=== PATIENT | male | born 1980 | race Caucasian/White ===

== ENCOUNTER 2019-10-24 00:19 | Emergency (ER) | payer OTHER ==
[2019-10-24 01:03] VITALS: BMI 36.0
--- NOTE | 2019-10-24 01:07 | PDOC ---
Attending Attestation - Resident Resident Name: Alison Dias - ED Attending Attestation I have performed the following: I have examined & evaluated the patient, The case was reviewed & discussed with the resident, I agree w/resident's findings & plan - HPI HPI: 10/24/19 03:53 see resident hpi - Physicial Exam PE: 10/24/19 03:53 see resident exam - Medical Decision Making 10/24/19 03:53 39-year-old male status post fall twisting his left ankle X-rays consistent with distal fibular fracture Due to extensive swelling we will CT scan the lower extremity affected region and hold for duplex in the a.m. Discharge - Discharge Information Problems reviewed: Yes Clinical Impression/Diagnosis: Fibula fracture Condition: Fair - Follow up/Referral - Patient Discharge Instructions - Post Discharge Activity
--- NOTE | 2019-10-24 01:31 | PDOC ---
History of Present Illness - General Chief Complaint: Pain, Acute Stated Complaint: FOOT INJURY Time Seen by Provider: 10/24/19 01:06 - History of Present Illness Initial Comments: HPI Pt is a 39yo Irish speaking M with no significant PMH who presents with left foot pain and swelling. Pt stated that he wanted his [id number] to assist with translation. Pt was lifting doors and walking up stairs on Wednesday pm when he twisted his ankle. Initially denied any pain or swelling and was able to bear weight immediately after accident. On Wednesday morning, notes swelling and pain of left foot, and inability to bear weight. Tried home remedies (potato and salt water) and Tylenol to decrease swelling with no effect. Decided to come in today for worsening pain and swelling, took 2 tabs of Flanax (naproxen). States pain is currently 10/10, sharp,non radiating. PCP: denies - has not seen PCP in many years PMH: denies PSH: appendectomy Meds: denies Allergies: NKDA Review of Systems CONSTITUTIONAL:denies fever, chills, diaphoresis, generalized weakness, malaise, loss of appetite HEENT:denies rhinorrhea, nasal congestion, sore throat CARDIOVASCULAR:denies chest pain, syncope, palpitations, lightheadedness RESPIRATORY:denies cough, shortness of breath, wheezing GASTROINTESTINAL: denies abdominal pain, nausea, vomiting, diarrhea, constipation, melena, hematochezia GENITOURINARY:denies dysuria, frequency, flank pain MUSCULOSKELETAL:denies myalgia, arthralgia HEMATOLOGIC/IMMUNOLOGIC:denies easy bleeding, easy bruising NEUROLOGIC:denies headache, loss of consciousness, dizziness, mental status changes SKIN:denies rash, itching, pallor Physical Exam General: awake, alert, oriented, in no acute distress, well developed, well nourished Head: normocephalic, atraumatic Eyes: PERRL, anicteric sclera, conjunctiva clear ENT: Auricles normal inspection, hearing grossly normal Lung: equal breath sounds b/l, CTA b/l, no crackles, wheezes Heart: RRR, normal S1, S2, no murmurs appreciated Abdomen: soft, non tender, normoactive bowel sounds, no guarding, rebound, masses Extremities: limited ROM with left foot dorsi- and planterflexion, decreased ROM of L knee; normal ROM of RLE, edema of L dorsal foot; ecchymosis about medial malleous; TTP of medial malleous, nontender dorsal foot; mild TTP of L calf, 2+ pitting edema of R calf; DP/PT pulses 2+ and symmetric Neuro: moves all extremities, normal speech, sensation intact Skin: warm, dry MDM Pt is a 39yo Irish speaking M with no significant PMH who presents with left foot pain and swelling. DDx including but not limited to: medial malleolar fracture, ligamentous injury, metatarsal fracture, DVT Workup: XRAY of tibia/fibula/foot TX: pain control Gave 1 Percocet and Zofran ODT ED course - xray with distal left fibular fracture, poorly visualized. Will order CT - CT: acute distal left fibular fracture, avulsion fracture of posterior lateral tibia adjacent to posterior syndesmosis, may be old; intact ankle mortise; soft tissue edema but no focal hematoma Given L calf edema and pain with palpation, will order duplex US of left leg 10/24/19 05:31 Pt states that pain is about the same as prior, however, he appears more concerned about the swelling. Informed patient about keeping his leg elevated to reduce swelling Pending duplex US of left leg in AM Pt signed out to day team Pending duplex US and splint Past History - Medical History Allergies/Adverse Reactions: Allergies Allergy/AdvReac Type Severity Reaction Status Date / Time No Known Allergies Allergy Verified 10/24/19 01:03 Home Medications: Ambulatory Orders Acetaminophen [Tylenol] 650 mg PO Q6H PRN #30 capsule 10/24/19 Ibuprofen [Motrin -] 600 mg PO Q6H PRN #30 tablet 10/24/19 - Psycho-Social/Smoking History Smoking History: Current every day smoker Have you smoked in the past 12 months: Yes Number of Cigarettes Smoked Daily: 6 Information on smoking cessation initiated: No - Substance Abuse Hx (Audit-C & DAST Scrn) How often the patient has a drink containing alcohol: Monthly or less Number of drinks the patient has on a typical day: 1 or 2 How often the patient has six or more drinks on one occasion: Never Score: In Men: 4 or > Positive; In Women: 3 or > Positive: 1 Screen Result (Pos requires Nsg. Audit-10AR): Negative In the last yr the pt used illegal drug/Rx for NonMed reason: No Score: Yes response is considered Positive: 0 Screen Result (Positive result requires Nsg. DAST-10): Negative *Physical Exam - Vital Signs Last Vital Signs Temp Pulse Resp BP Pulse Ox 98.6 F 98 H 17 118/63 98 10/24/19 00:25 10/24/19 00:25 10/24/19 00:25 10/24/19 00:25 10/24/19 00:25 Discharge - Discharge Information Problems reviewed: Yes Clinical Impression/Diagnosis: Fibula fracture Qualifiers: Encounter type: initial encounter Fibula location: distal Fracture type: closed Fracture morphology: unspecified fracture morphology Laterality: left Qualified Code(s): S82.832A - Other fracture of upper and lower end of left fibula, initial encounter for closed fracture Condition: Stable Disposition: HOME - Additional Discharge Information Prescriptions: Ibuprofen [Motrin -] 600 mg PO Q6H PRN #30 tablet PRN Reason: Pain Acetaminophen [Tylenol] 650 mg PO Q6H PRN #30 capsule PRN Reason: Pain - Follow up/Referral Referrals: Jaiden Funes MD [Staff Physician] - Krishna Gill MD [Staff Physician] - [facility] [place] [facility] [place] [Provider Group] - Patient Discharge Instructions Patient Printed Discharge Instructions: How to Use Crutches, DI for Ankle Fracture Additional Instructions: Discharge Instructions: You were seen in the emergency department for an injury to your left ankle. You were found to have a broken bone in your left ankle You had a splint placed to help the bone heal. Home Care: - You will most likely have pain, swelling and bruising for at least the next week. These should improve over time. - Keep your splint in place - Keep the splint dry. You may cover the splint with a plastic bag, rubber band over the end, to shower. - Apply ice as much as possible for the next 2-3 days. This will help reduce pain and swelling. - Elevate your leg above the level of your heart whenever possible. Use the sling provided during the day to help you keep your hand elevated. - Use ibuprofen (Advil or Motrin) 400mg or acetaminophen (Tylenol) 650mg every 6 hours as needed for pain. These may be alternated every 3 hours if needed for severe pain. - If your toes become swollen or feel numb, take the IVONNE wrap off your splint. Your toes should return back to normal quickly. Replace the IVONNE loosely or return to the ED. Follow Up: - You need to follow up with orthopedics within the next 7 days for evaluation of your fracture. You have been given contact information for Lara Funes and Jairo. Call as soon as possible to schedule an appointment. - Seek immediate care if you have severe pain, your toes become numb (and do not improve with removal of the wrap), your toes are cold or blue, you have severe swelling or redness, or you have any other medical emergency. You can follow up with the local Department of [employer] to talk about applying for Medicare. The [place]'s number is [phone]. You can also visit the website: [email or web address] All of today's xrays are included in this packet. Take it with you to your follow up appointment. Instrucciones de descarga: Lo vieron en el departamento de emergencias por justin lesin en el tobillo marc. Se encontr que yvrose un hueso roto en el tobillo marc Le colocaron justin frula para ayudar a que el hueso sane. Cuidados en el hogar: - Lo ms probable es que tenga dolor, hinchazn y hematomas justa al menos la prxima semana. Estos deberan mejorar con el tiempo. - Mantenga arvizu frula en arvizu lugar - Mantenga la frula seca. Puede cubrir la frula con justin bolsa de plstico, con justin madrigal de goma en el extremo, para ducharse. - Aplicar tanto hielo avril sea posible justa los prximos 2-3 saunders. [place] ayudar a reducir el dolor y la hinchazn. - Eleve arvizu pierna por encima del nivel de arvizu corazn siempre que sea posible. Use el cabestrillo provisto justa el da para ayudarlo a mantener la mano elevada. - Use ibuprofeno (Advil o Motrin) 400 mg o acetaminofn (Tylenol) 650 mg cada 6 horas segn sea necesario para el dolor. Estos pueden alternarse cada 3 horas si es necesario para el dolor intenso. - Si los dedos de los pies se hinchan o se adormecen, retire la venda IVONNE de arvizu frula. Los dedos de los pies deben volver a la normalidad rpidamente. Reemplace el IVONNE sin apretar o regrese al servicio de urgencias. Seguimiento: - Debe hacer un seguimiento con ortopedia dentro de los prximos 7 saunders para evaluar arvizu fractura. Se le villa proporcionado informacin de contacto de los doc beatriz Shantel e Jairo. Llame lo antes posible para programar justin ceferino. - Busque atencin inmediata si tiene un dolor intenso, los dedos de los pies se adormecen (y no mejoran con la extraccin de la venda), los dedos de los pies estn fros o azules, tiene hinchazn o enrojecimiento graves o si tiene alguna otra emergencia mdica. Puede hacer un seguimiento con el Departamento [employer] local para hablar sobre basket person solicitar Medicare. El nmero de [place] es [phone]. Jeimy puede visitar el sitio web: [email or web address] Todas las radiografas de darius estn incluidas en martina paquete. Llvelo con usted a arvizu ceferino de seguimiento. Print Language: CITIZEN OF [place] - Post Discharge Activity Work/Back to School Note: Back to Work
[2019-10-24] MEDS ORDERED: ONDANSETRON *ODT* 4 MG TABLET SL ONE (02:24)
[2019-10-24] MEDS ORDERED: ONDANSETRON *ODT* 4 MG TABLET ONE (02:43)
[2019-10-24 07:27] VITALS: TEMP 97.9
--- NOTE | 2019-10-24 07:30 | PDOC ---
*Physical Exam - Vital Signs Last Vital Signs Temp Pulse Resp BP Pulse Ox 97.9 F 63 16 110/73 95 10/24/19 07:00 10/24/19 07:00 10/24/19 07:00 10/24/19 07:00 10/24/19 07:00 <Torie Machuca - Last Filed: 10/24/19 07:29> - Vital Signs Last Vital Signs Temp Pulse Resp BP Pulse Ox 97.9 F 63 16 110/73 95 10/24/19 07:00 10/24/19 07:00 10/24/19 07:00 10/24/19 07:00 10/24/19 07:00 <Daryn Tsai - Last Filed: 10/24/19 10:37> - Vital Signs Last Vital Signs Temp Pulse Resp BP Pulse Ox 97.9 F 56 L 16 123/66 96 10/24/19 07:00 10/24/19 11:35 10/24/19 11:35 10/24/19 11:35 10/24/19 11:35 <Ashley Okeefe - Last Filed: 11/01/19 06:59> ED Treatment Course - Medications Given in the ED: ED Medications Discontinued Medications Generic Name Dose Route Start Last Admin Trade Name Freq PRN Reason Stop Dose Admin Ondansetron HCl 4 mg 10/24/19 02:24 10/24/19 02:48 Zofran Odt - SL 10/24/19 02:25 4 mg ONCE ONE Administration Oxycodone/Acetaminophen 1 combo 10/24/19 02:24 10/24/19 02:48 Percocet 5/325 - PO 10/24/19 02:25 1 combo ONCE ONE Administration <Torie Machuca - Last Filed: 10/24/19 07:29> - Medications Given in the ED: ED Medications Discontinued Medications Generic Name Dose Route Start Last Admin Trade Name Freq PRN Reason Stop Dose Admin Ondansetron HCl 4 mg 10/24/19 02:24 10/24/19 02:48 Zofran Odt - SL 10/24/19 02:25 4 mg ONCE ONE Administration Oxycodone/Acetaminophen 1 combo 10/24/19 02:24 10/24/19 02:48 Percocet 5/325 - PO 10/24/19 02:25 1 combo ONCE ONE Administration <Daryn Tsai - Last Filed: 10/24/19 10:37> - Medications Given in the ED: ED Medications Discontinued Medications Generic Name Dose Route Start Last Admin Trade Name Windy PRN Reason Stop Dose Admin Ondansetron HCl 4 mg 10/24/19 02:24 10/24/19 02:48 Zofran Odt - SL 10/24/19 02:25 4 mg ONCE ONE Administration Oxycodone/Acetaminophen 1 combo 10/24/19 02:24 10/24/19 02:48 Percocet 5/325 - PO 10/24/19 02:25 1 combo ONCE ONE Administration <Ashley Okeefe - Last Filed: 11/01/19 06:59> Medical Decision Making - Medical Decision Making 10/24/19 07:29 COMPARISON: None. FINDINGS: There was an oblique fracture of the distal left fibula. There is a questionable tiny avulsion fracture of the posterior lateral distal tibia adjacent to the posterior syndesmosis, although the suspected fracture is well corticated and this may represent an old injury. The ankle mortise is intact. There is soft tissue edema but no focal hematoma. IMPRESSION: Acute distal left fibula fracture Avulsion fracture of the posterior lateral tibia adjacent to the posterior syndesmosis may be old. Intact ankle mortise ultrasound pending if clear, splint and d/c home with ortho follow up social work consult. <Torie Machuca - Last Filed: 10/24/19 07:29> Discharge <Torie Machuca - Last Filed: 10/24/19 07:29> - Discharge Information Problems reviewed: Yes - Admission No <Daryn Tsai - Last Filed: 10/24/19 10:37> - Discharge Information Problems reviewed: Yes <Ashley Okeefe - Last Filed: 11/01/19 06:59> - Discharge Information Clinical Impression/Diagnosis: Fibula fracture Qualifiers: Encounter type: initial encounter Fibula location: distal Fracture type: closed Fracture morphology: unspecified fracture morphology Laterality: left Qualified Code(s): S82.832A - Other fracture of upper and lower end of left fibula, initial encounter for closed fracture Condition: Stable Disposition: HOME - Additional Discharge Information Prescriptions: Ibuprofen [Motrin -] 600 mg PO Q6H PRN #30 tablet PRN Reason: Pain Acetaminophen [Tylenol] 650 mg PO Q6H PRN #30 capsule PRN Reason: Pain - Follow up/Referral Referrals: [facility] [place] [facility] at [place] [Provider Group] Jaiden Funes MD [Staff Physician] - Krishna Gill MD [Staff Physician] - - Patient Discharge Instructions Patient Printed Discharge Instructions: How to Use Crutches, DI for Ankle Fracture Additional Instructions: Discharge Instructions: You were seen in the emergency department for an injury to your left ankle. You were found to have a broken bone in your left ankle You had a splint placed to help the bone heal. Home Care: - You will most likely have pain, swelling and bruising for at least the next week. These should improve over time. - Keep your splint in place - Keep the splint dry. You may cover the splint with a plastic bag, rubber band over the end, to shower. - Apply ice as much as possible for the next 2-3 days. This will help reduce pain and swelling. - Elevate your leg above the level of your heart whenever possible. Use the sling provided during the day to help you keep your hand elevated. - Use ibuprofen (Advil or Motrin) 400mg or acetaminophen (Tylenol) 650mg every 6 hours as needed for pain. These may be alternated every 3 hours if needed for severe pain. - If your toes become swollen or feel numb, take the IVONNE wrap off your splint. Your toes should return back to normal quickly. Replace the IVONNE loosely or return to the ED. Follow Up: - You need to follow up with orthopedics within the next 7 days for evaluation of your fracture. You have been given contact information for Lara Funes and Jairo. Call as soon as possible to schedule an appointment. - Seek immediate care if you have severe pain, your toes become numb (and do not improve with removal of the wrap), your toes are cold or blue, you have severe swelling or redness, or you have any other medical emergency. You can follow up with the local Department of [employer] to talk about applying for Medicare. The [place]'s number is [phone]. You can also visit the website: [email or web address] All of today's xrays are included in this packet. Take it with you to your follow up appointment. Instrucciones de descarga: Lo vieron en el departamento de emergencias por justin lesin en el tobillo marc. Se encontr que yvrose un hueso roto en el tobillo marc Le colocaron justin frula para ayudar a que el hueso sane. Cuidados en el hogar: - Lo ms probable es que tenga dolor, hinchazn y hematomas justa al menos la prxima semana. Estos deberan mejorar con el tiempo. - Mantenga arvizu frula en arvizu lugar - Mantenga la frula seca. Puede cubrir la frula con justin bolsa de plstico, con justin madrigal de goma en el extremo, para ducharse. - Aplicar tanto hielo avril sea posible justa los prximos 2-3 saunders. [place] ayudar a reducir el dolor y la hinchazn. - Eleve arvizu pierna por encima del nivel de arvizu corazn siempre que sea posible. Use el cabestrillo provisto justa el da para ayudarlo a mantener la mano elevada. - Use ibuprofeno (Advil o Motrin) 400 mg o acetaminofn (Tylenol) 650 mg cada 6 horas segn sea necesario para el dolor. Estos pueden alternarse cada 3 horas si es necesario para el dolor intenso. - Si los dedos de los pies se hinchan o se adormecen, retire la venda IVONNE de arvizu frula. Los dedos de los pies deben volver a la normalidad rpidamente. Reemplace el IVONNE sin apretar o regrese al servicio de urgencias. Seguimiento: - Debe hacer un seguimiento con ortopedia dentro de los prximos 7 saunders para evaluar arvizu fractura. Se le villa proporcionado informacin de contacto de los doctores Funes e Jairo. Llame lo antes posible para programar justin ceferino. - Busque atencin inmediata si tiene un dolor intenso, los dedos de los pies se adormecen (y no mejoran con la extraccin de la venda), los dedos de los pies estn fros o azules, tiene hinchazn o enrojecimiento graves o si tiene alguna otra emergencia mdica. Puede hacer un seguimiento con el Departamento de [employer]ios Sociales local para hablar sobre mixing pan tender solicitar Medicare. El nmero de [place] es [phone]. Jeimy puede visitar el sitio web: [email or web address] Todas las radiografas de donaldoilene estn incluidas en martina paquete. Llvelo con usted a arvizu ceferino de seguimiento. Print Language: GERMAN - Post Discharge Activity Work/Back to School Note: Back to Work
[2019-10-24 11:46] VITALS: BP 123/66; PULSE 56
== END 2019-10-24 11:46 | disposition home or self-care (01) ==
LOC: JER 00:19
DX: S82.832A Other fracture of upper and lower end of left fibula, initial encounter for closed fracture (principal)
CPT/HCPCS: 73590-TC-LT-FY; 73630-TC-LT; 73700-TC-RT; 93971-TC; 99285-25; Q0162

== ENCOUNTER 2020-06-21 18:54 | Emergency (ER) | payer OTHER ==
[2020-06-21 19:14] VITALS: TEMP 98.2; BMI 30.3
[2020-06-21 21:30] LABS: BASO % 0.4 % (0-2.0); HEMOGLOBIN 16.3 GM/dL (11.7-16.9); LYMPH % 31.9 % (8-40); MCH 31.7 pg (25.7-33.7); MCHC 34.8 g/dl (32.0-35.9); MEAN CELL VOLUME 91.1 fl (80-96); MEAN PLT VOLUME 8.3 fl (7.5-11.1); MONO % 7.4 % (3.8-10.2); NEUT % 56.3 % (42.8-82.8); PLATELET COUNT 255 K/MM3 (134-434); RBC 5.16 M/mm3 (4.00-5.60); RDW 13.6 % (11.9-15.9); WHITE BLOOD COUNT 8.2 K/mm3 (4.0-10.0)
[2020-06-21 21:40] LABS: CHLORIDE 104 mmol/L (98-107); SODIUM 137 mmol/L (136-145)
[2020-06-21 21:43] LABS: ANION GAP 7 MMOL/L (8-16); CO2 26 mmol/L (21-32)
[2020-06-21 21:44] LABS: ALBUMIN 4.3 g/dl (3.4-5.0); GLUCOSE,RANDOM 88 mg/dL (74-106); MAGNESIUM 2.3 mg/dL (1.8-2.4)
[2020-06-21 21:46] LABS: SGOT/AST 20 U/L (15-37); SGPT/ALT 22 U/L (13-61)
[2020-06-21 21:47] LABS: CREATININE 0.8 mg/dL (0.55-1.3)
[2020-06-21 21:48] LABS: BILIRUBIN,TOTAL 0.5 mg/dL (0.2-1); TOT PROT 7.7 g/dl (6.4-8.2)
[2020-06-21 21:49] LABS: ALK PHOS 75 U/L (45-117)
[2020-06-21 22:27] VITALS: BP 135/77; PULSE 63
== END 2020-06-21 22:33 | disposition home or self-care (01) ==
LOC: JER 18:54
DX: R00.2 Palpitations (principal); R07.9 Chest pain, unspecified
CPT/HCPCS: 36415; 71046-TC-FY; 80053; 82550; 82553; 83735; 84443; 84484; 85025; 93005; 93010; 99285-25